=== PATIENT | female | born 1980 | race Two or more races ===

== ENCOUNTER 2021-11-19 06:43 | Inpatient (IN) | payer BC, OTHER ==
[~2021-11-19] VITALS: Ht 154.9 cm; Wt 64.6 kg
[2021-11-19] MEDS ORDERED: SODIUM CHLORIDE 0.9% 1,000 ML IV ONE ×2 (07:15)
[2021-11-19] MEDS ORDERED: LORazepam 2MG/ML-1ML VIAL ONE (07:22)
[2021-11-19] MEDS ORDERED: LORazepam 2MG/ML-1ML VIAL IV ONE (07:30)
[2021-11-19 07:42] LABS: Basophils # (auto) 0 10 ^3/uL (0-0.2); Basophils % (auto) 0.5 % (0.0-2.0); Eosinophils # (auto) 0.2 10 ^3/uL (0-0.8); Hematocrit 41.6 % (36.0-46.0); Hemoglobin 14.1 g/dL (12.2-16.2); Lymphocytes # (auto) 2.4 10 ^3/uL (0.4-5.4); Lymphocytes % (auto) 26.1 % (10.0-50.0); Mean Corpuscular Hemoglobin 29.1 pg (28.0-32.0); Mean Corpuscular Hgb Conc. 33.8 g/dL (32.0-36.0); Mean Corpuscular Volume 85.9 fL (80.0-100.0); Monocytes # (auto) 0.5 10 ^3/uL (0-1.3); Monocytes % (auto) 4.9 % (0.0-12.0); Neutrophils # (auto) 6.2 10 ^3/uL (1.6-8.6); Neutrophils % (auto) 66.5 % (37.0-80.0); Red Blood Cells 4.84 10^6/uL (4.0-5.20); White Blood Cell 9.2 10^3/uL (4.4-10.8)
[2021-11-19 07:52] LABS: Calcium 8.9 mg/dL (8.5-10.1); Potassium 4.1 mmol/L (3.5-5.1)
[2021-11-19 07:55] LABS: BUN/Creatinine Ratio 11.3; Bilirubin, Total 0.4 mg/dL (0.2-1.0); Total Protein 7.8 g/dL (6.4-8.2)
[2021-11-19 09:32] LABS: Urine Bacteria NONE SEEN /hpf (None Seen); Urine Blood Negative /uL (Negative); Urine Hyaline Cast FEW /lpf (0 - 2); Urine Mucus FEW (None Seen); Urine Specific Gravity 1.027 (1.001-1.035); Urine WBC 23 /hpf (0 - 5)
[2021-11-19] MEDS ORDERED: ONDANSETRON HCL 4 MG/2 ML VIAL IV PRN (10:00)
[2021-11-19] MEDS: ENOXAPARIN SOD 40 MG/0.4 ML SYRINGE SC SCH (10:31)
[2021-11-19] MEDS: ACETAMINOPHEN 325 MG TAB PO PRN ×2 (12:05→19:53)
[2021-11-19 15:00] VITALS: BP 124/82
[2021-11-19] MEDS ORDERED: LORazepam 2MG/ML-1ML VIAL IV PRN ×2 (19:15)
[2021-11-19 22:00] VITALS: BP 108/67
[2021-11-19] MEDS: cefTRIAXone 1GM/50ML D5W 50 ML IV SCH (22:18)
[2021-11-19] MEDS: ZOLPIDEM TARTRATE 5 MG TAB PO PRN (22:18)
[2021-11-20 05:00] VITALS: BP 115/72
[2021-11-20 05:38] LABS: Basophils # (auto) 0 10 ^3/uL (0-0.2); Basophils % (auto) 0.4 % (0.0-2.0); Eosinophils # (auto) 0.1 10 ^3/uL (0-0.8); Eosinophils % (auto) 1.6 % (0.0-7.0); Hematocrit 33.4 % (36.0-46.0); Hemoglobin 11.6 g/dL (12.2-16.2); Lymphocytes # (auto) 1.2 10 ^3/uL (0.4-5.4); Lymphocytes % (auto) 14.9 % (10.0-50.0); Mean Corpuscular Hgb Conc. 34.9 g/dL (32.0-36.0); Mean Corpuscular Volume 83.2 fL (80.0-100.0); Monocytes # (auto) 0.5 10 ^3/uL (0-1.3); Neutrophils # (auto) 6.4 10 ^3/uL (1.6-8.6); Neutrophils % (auto) 77.1 % (37.0-80.0); Nucleated Red Blood Cells % 0.1 %; Red Blood Cells 4.01 10^6/uL (4.0-5.20); Red Cell Distribution Width 12.6 % (11.8-14.3); White Blood Cell 8.2 10^3/uL (4.4-10.8)
[2021-11-20 05:54] LABS: Albumin 3.1 g/dL (3.4-5.0); Calcium 8.3 mg/dL (8.5-10.1); Potassium 3.9 mmol/L (3.5-5.1)
[2021-11-20 05:57] LABS: Bilirubin, Total 0.6 mg/dL (0.2-1.0); Total Protein 6.1 g/dL (6.4-8.2)
[2021-11-20 06:41] LABS: Alcohol, Urine < 3.0 mg/dL (0-10); Amphetamine Screen, Urine NEGATIVE (NEGATIVE); Barbiturate Scree,Urine NEGATIVE (NEGATIVE); Benzodiazephine Screen, Urine NEGATIVE (NEGATIVE); Cannabinoid Screen, Urine POSITIVE (NEGATIVE); Cocaine Screen, Urine NEGATIVE (NEGATIVE); Opiate Scree,Urine NEGATIVE (NEGATIVE); Phencyclidine Screen, Urine NEGATIVE (NEGATIVE)
[2021-11-20 09:00] VITALS: BP 120/60
[2021-11-20] MEDS: ENOXAPARIN SOD 40 MG/0.4 ML SYRINGE SC SCH (09:24)
[2021-11-20 13:00] VITALS: BP 135/84
[2021-11-20] MEDS: ACETAMINOPHEN 325 MG TAB PO PRN (15:21)
[2021-11-20] MEDS ORDERED: PROG1CAP PO (19:23)
[2021-11-20] MEDS ORDERED: TEST30SO2 TD (19:23)
[2021-11-20] MEDS: cefTRIAXone 1GM/50ML D5W 50 ML IV SCH (21:03)
[2021-11-20] MEDS: ZOLPIDEM TARTRATE 5 MG TAB PO PRN (21:03)
[2021-11-20 22:00] VITALS: BP 113/60
[2021-11-21 05:00] VITALS: BP 116/69
[2021-11-21 09:00] VITALS: BP 114/76
[2021-11-21] MEDS: ENOXAPARIN SOD 40 MG/0.4 ML SYRINGE SC SCH (09:49)
[2021-11-21 13:00] VITALS: BP 121/75
[2021-11-21 17:00] VITALS: BP 129/81
[2021-11-21] MEDS: cefTRIAXone 1GM/50ML D5W 50 ML IV SCH (20:34)
[2021-11-21] MEDS: ZOLPIDEM TARTRATE 5 MG TAB PO PRN (21:54)
[2021-11-21 22:00] VITALS: BP 136/76
[2021-11-22 05:00] VITALS: BP 131/73
[2021-11-22 09:00] VITALS: BP 113/69
[2021-11-22] MEDS: ENOXAPARIN SOD 40 MG/0.4 ML SYRINGE SC SCH (09:28)
[2021-11-22] MEDS ORDERED: LEVO500T31 PO (10:28)
[2021-11-22] MEDS ORDERED: ZOLP5TAB PO (10:28)
[2021-11-22 13:01] VITALS: BP 113/69
== END 2021-11-22 04:46 | disposition home or self-care (01) | DRG 101 ==
LOC: EDBD 06:43 → ER 06:43 → OVERFLOW 09:57 → EAST 14:56
PROVIDERS: ADMIT Internal Medicine; ATTEND Family Medicine
DX: G40.401 Other generalized epilepsy and epileptic syndromes, not intractable, with status epilepticus (principal); N39.0 Urinary tract infection, site not specified; E86.0 Dehydration; G47.00 Insomnia, unspecified; Z20.822 Contact with and (suspected) exposure to COVID-19; Z82.49 Family history of ischemic heart disease and other diseases of the circulatory system; Z83.3 Family history of diabetes mellitus
CPT/HCPCS: 36415; 70450; 70551; 80053; 80307; 81001; 85025; 93005; 95819; 96361; 96365; 96372; 96375; G0378; J0696; J7060